=== PATIENT | female | born 1940 | race Caucasian/White ===

== ENCOUNTER 2017-05-19 16:15 | Emergency (ER) | payer MEDICARE, BC ==
[~2017-05-19] VITALS: Ht 165.1 cm; Wt 77.9 kg
[~2017-05-19 16:15] MED LIST: AMLO5 PO; ATOR20TA15 PO; LEVO.125 PO; LYRI75CA PO; OMEP40CA2 PO; ZINC50TA PO
[2017-05-19 16:21] VITALS: BP 126/63; PULSE 89; RESP 16; TEMP 100.6; O2SAT 98
[2017-05-19] MEDS ORDERED: ACETAMINOPHEN 500 MG CPLT PO ONE (16:45)
--- NOTE | 2017-05-19 16:47 | PD ---
HPI Chief Complaint: Cold / Flu Symptoms Time Seen by Provider: 16:30 Travel History International Travel<30 days: No Contact w/Intl Traveler<30days: No Traveled to known affect area: No History of Present Illness HPI 76yo F with PMH of hypothyroidism and chronic back pain presents to the ED with multiple complaints. States for the last 2 days, she has been coughing, having nasal congestion, feeling feverish, feeling dizzy, generalized weakness. Denies any chest pain, sob, n/v, abdominal pain, focal weakness or numbness. PFSH Past Medical History Hx Anticoagulant Therapy: No Arthritis: Yes Autoimmune Disease: No Anxiety: Yes Depression: No Cancer: No Cardiovascular Problems: Yes (HTN) High Cholesterol: Yes Chest Pain: Yes Diabetes: No Diminished Hearing: No Diverticulitis: Yes GERD: Yes Genitourinary: No Hiatal Hernia: No Hypertension: Yes Immune Disorder: No Neurologic: Yes Reproductive: No Respiratory: No Thyroid Disease: Yes Ulcer: No ?: Not Past Surgical History Appendectomy: Yes Ear Surgery: Yes Hysterectomy: Yes Other Surgery: Yes (GOITER REMOVED) Social History Alcohol Use: No Tobacco Use: No Substance Use: No Allergies-Medications (Allergen,Severity, Reaction): Coded Allergies: No Known Allergies (Verified Adverse Reaction, Unknown, 05/19/17) Reported Meds & Prescriptions Reported Meds & Active Scripts Active Tylenol (Acetaminophen) 325 Mg Tab 325 Mg PO Q4H PRN 5 Days Tamiflu (Oseltamivir Phosphate) 75 Mg Cap 75 Mg PO BID 5 Days Reported Atorvastatin (Atorvastatin Calcium) 20 Mg Tab 20 Mg PO HS Synthroid (Levothyroxine Sodium) 125 Mcg Tab 125 Mcg PO DAILY Omeprazole 40 Mg Cap 40 Mg PO DAILY Lyrica (Pregabalin) 75 Mg Cap 75 Mg PO DAILY Review of Systems Except as stated in HPI: all other systems reviewed are Neg Physical Exam Narrative GENERAL: 76yo F in mild distress. SKIN: Focused skin assessment warm/dry. HEAD: Atraumatic. Normocephalic. EYES: Pupils equal and round. No scleral icterus. No injection or drainage. ENT: Uvula midline. No exudate or erythema. NECK: No nuchal rigidity. +TTP anterior cervical lymphadenopathy. CARDIOVASCULAR: Regular rate and rhythm. No murmur appreciated. RESPIRATORY: No accessory muscle use. Clear to auscultation. Breath sounds equal bilaterally. GASTROINTESTINAL: Abdomen soft, non-tender, nondistended. No rebound tenderness or guarding. MUSCULOSKELETAL: No obvious deformities. No clubbing. No cyanosis. No edema. NEUROLOGICAL: Awake and alert. No obvious cranial nerve deficits. Motor grossly within normal limits. Pt has chronic back pain so unable to keep bilateral lower extremity up secondary to pain and is not new. Sensation equal bilaterally. Normal speech. PSYCHIATRIC: Appropriate mood and affect; insight and judgment normal. Data Data Last Documented VS Vital Signs Date Time Temp Pulse Resp B/P (MAP) Pulse Ox O2 Delivery O2 Flow Rate FiO2 05/19/17 18:22 99.0 05/19/17 17:48 96 Room Air 05/19/17 17:48 86 18 Orders Orders Influenzae A/B Antigen (05/19/17 16:38) Electrocardiogram (05/19/17 16:38) Basic Metabolic Panel (Bmp) (05/19/17 16:38) Complete Blood Count With Diff (05/19/17 16:38) Magnesium (Mg) (05/19/17 16:38) Troponin I (05/19/17 16:38) Urinalysis - C+S If Indicated (05/19/17 16:38) Orthostatic Vital Signs (05/19/17 16:38) Lactic Acid Sepsis Protocol (05/19/17 16:38) Acetaminophen (Tylenol) (05/19/17 16:45) Chest, Single Ap (05/19/17 ) Group A Rapid Strep Screen (05/19/17 16:38) Thyroid Stimulating Hormone (05/19/17 16:47) Strep Culture (Group A) (05/19/17 17:10) Oseltamivir (Tamiflu) (05/19/17 18:15) Ed Discharge Order (05/19/17 18:25) Labs Laboratory Tests Test 05/19/17 16:55 05/19/17 17:10 Urine Color YELLOW Urine Turbidity CLEAR Urine pH 6.0 Urine Specific [place] 1.016 Urine Protein 30 mg/dL Urine Glucose (UA) NEG mg/dL Urine Ketones 15 mg/dL Urine Occult Blood MOD Urine Nitrite NEG Urine Bilirubin NEG Urine Leukocyte Esterase NEG Urine RBC 0-3 /hpf Urine WBC 0-2 /hpf Urine Squamous Epithelial Cells 0-5 /hpf Urine Amorphous Sediment FEW Urine Fine Granular Casts 0-2 /lpf Urine Mucus FEW /lpf Microscopic Urinalysis Comment CULT NOT INDICATED White Blood Count 10.9 TH/MM3 Red Blood Count 4.71 MIL/MM3 Hemoglobin 14.1 GM/DL Hematocrit 42.2 % Mean Corpuscular Volume 89.6 FL Mean Corpuscular Hemoglobin 30.0 PG Mean Corpuscular Hemoglobin Concent 33.4 % Red Cell Distribution Width 13.9 % Platelet Count 202 TH/MM3 Mean Platelet Volume 7.8 FL Neutrophils (%) (Auto) 71.7 % Lymphocytes (%) (Auto) 11.6 % Monocytes (%) (Auto) 15.0 % Eosinophils (%) (Auto) 0.3 % Basophils (%) (Auto) 1.4 % Neutrophils # (Auto) 7.8 TH/MM3 Lymphocytes # (Auto) 1.3 TH/MM3 Monocytes # (Auto) 1.6 TH/MM3 Eosinophils # (Auto) 0.0 TH/MM3 Basophils # (Auto) 0.2 TH/MM3 CBC Comment DIFF FINAL Differential Comment Blood Urea Nitrogen 17 MG/DL Creatinine 0.93 MG/DL Random Glucose 93 MG/DL Calcium Level 9.3 MG/DL Magnesium Level 2.4 MG/DL Sodium Level 134 MEQ/L Potassium Level 4.0 MEQ/L Chloride Level 96 MEQ/L Carbon Dioxide Level 27.9 MEQ/L Anion Gap 10 MEQ/L Estimat Glomerular Filtration Rate 59 ML/MIN Lactic Acid Level 1.4 mmol/L Troponin I LESS THAN 0.02 NG/ML Thyroid Stimulating Hormone 3rd Gen 1.270 uIU/ML MDM Medical Decision Making Medical Screen Exam Complete: Yes Emergency Medical Condition: Yes Interpretation(s) EKG: NSR 87bpm. LAD. No ST segment elevation or depression. Differential Diagnosis URI vs. influenza vs. viral syndrome vs. arrhythmia vs. dehydration vs. UTI vs. pneumonia Narrative Course 76yo F with generalized malaise, fever and multiple other flu like symptoms. Labs reviewed, no leukocytosis. H/H normal. Troponin negative. TSH normal. Lactic acid normal. UA negative for leukocyte and WBC 0-2. Culture not indicated. Pt found to have mild fever of 100.6F. Pt given acetaminophen and reevaluated at bedside. Feels slightly better. Repeat temp 99F. Positive for influenza A. Negative group A strep. Pt tolerating PO and given tamiflu here. Will try outpatient treatment first and if pt unable to tolerate PO or have worsening symptoms, will have pt return to the ED. Pt to follow up with PMD. Diagnosis Primary Impression: Influenza A Patient Instructions: General Instructions Departure Forms: Tests/Procedures Additional Instructions: Please keep hydrated and drink plenty of fluids. Please follow up with your primary care physician in 2-3 days. Return to the ED if symptoms worsen. Med/Other Pt SpecificInfo: Prescription(s) given Scripts Acetaminophen (Tylenol) 325 Mg Tab 325 MG PO Q4H Y for FEVER for 5 Days, #30 TAB 0 Refills Prov: Malia Briggs DO 05/19/17 Oseltamivir (Tamiflu) 75 Mg Cap 75 MG PO BID for Mgmt Viral Infection for 5 Days, #10 CAP 0 Refills Prov: Malia Briggs DO 05/19/17 Disposition: 01 DISCHARGE HOME Condition: Stable Malia Briggs DO May 19, 2017 16:46
--- NOTE | 2017-05-19 17:23 | RADRPT ---
EXAM DATE/TIME: 05/19/2017 17:02 [facility] COMPARISON: CHEST SINGLE AP, June 23, 2016, 10:15. INDICATIONS : Headache, nausea and vomiting MEDICAL HISTORY : None. SURGICAL HISTORY : None. ENCOUNTER: Initial ACUITY: 3 days PAIN SCORE: 5/10 LOCATION: Bilateral chest FINDINGS: A single view of the chest demonstrates the lungs to be symmetrically aerated without evidence of mas s, infiltrate or effusion. The cardiomediastinal contours are unremarkable. Osseous structures are intact. Bilateral nipple shadows are seen. CONCLUSION: The lungs are clear. Onur Martínez MD on May 19, 2017 at 17:21 Board Certified Radiologist. This report was verified electronically.
[2017-05-19 17:24] LABS: BLOOD, URINE MOD (NEG); GLUCOSE,URINE NEG (NEG); KETONE, URINE 15 mg/dL (NEG); NITRITE,URINE NEG (NEG)
[2017-05-19 17:26] LABS: AUTOMATED NEUTROPHIL # 7.8 TH/MM3 (1.8-7.7); BASOPHIL # 0.2 TH/MM3 (0-0.2); BASOPHIL % 1.4 % (0.0-2.0); EOSINOPHIL % 0.3 % (0.0-4.0); HEMATOCRIT 42.2 % (35.0-46.0); LYMPH % 11.6 % (9.0-44.0); LYMPHOCYTE # 1.3 TH/MM3 (1.0-4.8); MEAN CELL VOLUME 89.6 FL (80.0-100.0); MEAN CORPUSCULAR HGB CONC 33.4 % (32.0-36.0); NEUT % 71.7 % (16.0-70.0); PLATELET COUNT 202 TH/MM3 (150-450); RED BLOOD COUNT 4.71 MIL/MM3 (4.00-5.30); RED CELL DISTRIBUTION WIDTH 13.9 % (11.6-17.2); WHITE BLOOD COUNT 10.9 TH/MM3 (4.0-11.0)
[2017-05-19 17:28] LABS: HEMO FLAGS DIFF FINAL
[2017-05-19 17:31] LABS: CHLORIDE 96 MEQ/L (98-107); SODIUM (NA) 134 MEQ/L (136-145)
[2017-05-19 17:32] LABS: URINE COLOR YELLOW (YELLW/STRAW)
[2017-05-19 17:33] LABS: COMMENT (UR) CULT NOT INDICATED; CULTURE IF INDICATED CULT NOT INDICATED; MUCUS URINE FEW /lpf (OCC); RBC, URINE 0-3 /hpf (0-3); SQUAMOUS EPITHELIAL CELL URINE 0-5 /hpf (0-5); WBC, URINE 0-2 /hpf (0-5)
[2017-05-19 17:34] LABS: ANION GAP 10 MEQ/L (5-15); BICARBONATE 27.9 MEQ/L (21.0-32.0); BLOOD UREA NITROGEN 17 MG/DL (7-18); MAGNESIUM 2.4 MG/DL (1.5-2.5)
[2017-05-19 17:37] LABS: GLOMERULAR FILTRATION RATE 59 ML/MIN (>89)
[2017-05-19 17:48] VITALS: BP 138/70; PULSE 86; RESP 18; O2SAT 96
[2017-05-19 17:55] VITALS: BP_SYST 129; BP_SYST 133; BP_DIAS 77; BP_DIAS 82; RESP 18
[2017-05-19] MEDS ORDERED: OSELTAMIVIR PHOSPHATE 75 MG CAP PO ONE (18:15)
[2017-05-19 18:22] VITALS: TEMP 99
[2017-05-19] MEDS ORDERED: OSEL75 PO (18:25)
[2017-05-19] MEDS ORDERED: TYLE325T PO (18:25)
--- NOTE | 2017-05-21 06:58 | EKG ---
Date Performed: 05/19/2017 Time Performed: 17:19:58 PTAGE: 76 years EKG: Sinus rhythm MARKED LEFT AXIS DEVIATION ABNORMAL ECG PREVIOUS TRACING : 06/23/2016 17.31 Compared to prior tracing no significant change DOCTOR: Matthew Carrasco Interpretating Date/Time 05/21/2017 06:58:08
== END 2017-05-19 19:04 | disposition home or self-care (01) ==
LOC: PHEFT 16:15
DX: J09.X2 Influenza due to identified novel influenza A virus with other respiratory manifestations (principal); E03.9 Hypothyroidism, unspecified; I10 Essential (primary) hypertension; R94.31 Abnormal electrocardiogram [ECG] [EKG]
CPT/HCPCS: 71010; 80048; 81001; 83605; 83735; 84443; 84484; 85025; 87081; 87804; 87880; 93005; 99285